=== PATIENT | male | born 1980 | race Caucasian/White ===

== ENCOUNTER 2016-04-29 16:13 | Emergency (ER) | payer BC ==
[2016-04-29 16:37] VITALS: BP 143/93
--- NOTE | 2016-04-29 18:24 | EDM.PDOC ---
ED HPI Trauma - General Chief Complaint: Upper Extremity Injury/Pain Stated Complaint: RT HAND INJURY Time Seen by Provider: 04/29/16 16:45 Source: Reports: Patient History Limitations: Reports: No limitations - History of Present Illness INITIAL COMMENTS - FREE TEXT/NARRATIVE: Evans is a 36yo male presents ambulatory to ED with complaints of right hand pain and swelling after an incident with his horse in the park yesterday afternoon. He was trying to get saddle on his horse and horse spooked, he got thrown into park. He is not exactly sure what happened but did have pain to the dorsal surface of his hand after this. He had no other injuries, no LOC. Last night he noted swelling to the dorsal surface of his hand with worsening pain. He applied ice. This morning hand is more swollen and painful. He did take motrin with good relief. Denies numbness/tingling to the fingers. No laceration to the hand. He is otherwise healthy. He is rt hand dominant. He is a rancher/witt. Occurred When: yesterday Occurred Where: home Method of Injury: direct blow Severity: moderate Pain/Injury Location: Reports: upper extremity, right Consciousness: Reports: no loss of consciousness Associated Symptoms: Reports: no other symptoms. Denies: chest pain, confusion , dizziness, headache, lightheadedness, muscle spasms, nausea/vomiting, neck pain, seizures, shortness of breath Allergies/ADRs: Allergies No Known Allergies Allergy (Verified 04/29/16 16:33) Home Medications: Ambulatory Orders Ranitidine HCl [Zantac 75] 1 tab PO DAILY PRN 04/29/16 [Confirmed 04/29/16] Past Medical History Gastrointestinal History: Reports: GERD - Past Surgical History Musculoskeletal Surgical History: Reports: Other (see below) Other Musculoskeletal Surgeries/Procedures:: Right wrist Social & Family History - Tobacco Use Smoking Status *Q: Never Smoker Second Hand Smoke Exposure: No - Caffeine Use Caffeine Use: Reports: Tea - Recreational Drug Use Recreational Drug Use: No Review of Systems - Review of Systems Review Of Systems: See Below Constitutional: Reports: no symptoms Eyes: Reports: no symptoms Ears: Reports: no symptoms Nose: Reports: no symptoms Mouth/Throat: Reports: no symptoms Respiratory: Reports: No Symptoms Cardiovascular: Reports: no symptoms GI/Abdominal: Reports: No symptoms Genitourinary: Reports: no symptoms Musculoskeletal: Reports: hand pain (rt hand; see HPI) Skin: Reports: no symptoms Neurological: Reports: No Symptoms Trauma Exam - Physical Exam Exam: See Below Exam Limited By: No limitations General Appearance: Reports: alert, WD/WN, no apparent distress Head: Reports: atraumatic, normocephalic Eyes: bilateral eye: EOMI, PERRL Ears: Reports: normal external exam, hearing grossly normal Nose: Reports: normal inspection Throat/Mouth: Reports: Normal inspection, Normal lips Respiratory Exam: Reports: no respiratory distress Cardiovascular: Reports: normal peripheral pulses (radial pulses 2+ and = bilat) Extremities: Reports: other (dorsum of right hand is with swelling over 3rd and 4th distal metacarpals; pain over this area with palpation. He has full ROM to fingers and wrist. CMS is + to all fingers. ) Neurologic: Reports: humanities coordinator II-XII nml as tested Skin: Reports: Normal color, Warm/dry Course - Vital Signs Last Recorded V/S: Last Vital Signs Temp 98.3 F 04/29/16 16:34 Pulse 75 04/29/16 16:34 Resp 18 04/29/16 16:34 BP 143/93 H 04/29/16 16:34 Pulse Ox 99 04/29/16 16:34 - Orders/Labs/Meds Orders: Active Orders 24 hr Category Date Time Status Hand 2V Rt [CR] Stat Exams 04/29/16 16:44 Taken - Radiology Interpretation Free Text/Narrative:: Xray of right hand shows 3rd distal metacarpal fracture at the base; nondisplaced. Independently reviewed by myself. Will await [facility] final report. Departure - Departure Time of Disposition: 18:10 Disposition: Home, Self-Care 01 Condition: good Clinical Impression: Fracture of metacarpal bone Qualifiers: Encounter type: initial encounter Metacarpal bone: third Fracture type: closed Metacarpal location: base Fracture alignment: nondisplaced Laterality: right Qualified Code(s): S62.342A - Nondisplaced fracture of base of third metacarpal bone, right hand, initial encounter for closed fracture Instructions: Metacarpal Fracture, [id number] Referrals: Haily lAdana PA-C [Primary Care Provider] - Forms: ED Department Discharge Additional Instructions: You have a fracture at the base of your hand; base of the long finger where it connects to your wrist; at this time it is not displaced and in good alignment; if it stays this way, most likely will not need surgical intervention. Please follow up with Dr. Valverde with [facility] sometime next week for further evaluation: call [phone] to schedule appointment Elevate arm as much as possible Ibuprofen 3-4 tabs 3 times daily if needed for pain Ice over splint as needed 3-4 times daily Sling as needed for comfort Keep splint clean and dry, do not remove until you see Dr. Valverde next week. Call or return to ER if problems, questions or concerns.
--- NOTE | 2016-05-01 06:53 | CR ---
Right hand: Two views of the right hand were obtained. Comparison: No previous study. Soft tissue swelling seen. Joint spaces are preserved. Well-corticated bony density noted off the ulnar styloid process compatible with old injury. Several small bony densities also noted off the dorsal wrist compatible with old injury. No acute fracture or other bony abnormality is appreciated. Impression: 1. Soft tissue swelling. Other incidental findings. No acute bony abnormality is identified. Diagnostic code #2
== END 2016-04-29 18:30 | disposition home or self-care (01) ==
LOC: JD.ED 16:13
DX: S62.342A Nondisplaced fracture of base of third metacarpal bone, right hand, initial encounter for closed fracture (principal); K21.9 Gastro-esophageal reflux disease without esophagitis; Z79.899 Other long term (current) drug therapy; Z98.890 Other specified postprocedural states; V80.010A Animal-rider injured by fall from or being thrown from horse in noncollision accident, initial encounter; Y92.009 Unspecified place in unspecified non-institutional (private) residence as the place of occurrence of the external cause
CPT/HCPCS: 29125; 73120-26-RT; 73120-RT; 99283-25; 99284-25

== ENCOUNTER → 2019-12-23 | Day surgery (SDC) | payer MEDICAID ==
[~2019-12-23] MED LIST: Lactated Ringers 1,000 ML IV SCH; Lidocaine 1%/Sod Bicarbonate in NS 8.4% 1 ML Syringe IDERM PRN; Midazolam 1 MG/ML 2 ML SDV ONE; Propofol 200 MG/20 ML SDV ONE; Simethicone 80 MG Tab.Chew PO SCH; Sodium Chloride 0.9% 10 ML Syringe FLUSH PRN; fentaNYL 100 MCG/2 ML SDV ONE
--- NOTE | 2019-12-23 09:44 | PCM.PREANE ---
Preanesthetic Assessment - Procedure Proposed Procedure: screening colonoscopy - Anesthesia/Transfusion/Family Hx Anesthesia History: Prior Anesthesia Without Reaction Family History of Anesthesia Reaction: No Transfusion History: No Prior Transfusion(s) - Review of Systems General: No Symptoms Pulmonary: No Symptoms Cardiovascular: No Symptoms Gastrointestinal: Abdominal Pain (hunger pains) Neurological: No Symptoms - Physical Assessment NPO Status Date: 12/22/19 NPO Status Time: 00:00 Height: 1.83 m Weight: 83.915 kg ASA Class: 2 Mental Status: Alert & Oriented x3 Airway Class: Mallampati = 1 Dentition: Reports: Normal Dentition Thyro-Mental Finger Breadths: 3 Mouth Opening Finger Breadths: 3 ROM/Head Extension: Full Lungs: Clear to Auscultation, Normal Respiratory Effort Cardiovascular: Regular Rate, Regular Rhythm - Allergies Allergies/Adverse Reactions: Allergies Allergy/AdvReac Type Severity Reaction Status Date / Time No Known Allergies Allergy Verified 04/29/16 16:33 - Blood Blood Available: No Product(s) Available: None - Anesthesia Plan Pre-Op Medication Ordered: None - Acknowledgements Anesthesia Type Planned: MAC Pt an Appropriate Candidate for the Planned Anesthesia: Yes Alternatives and Risks of Anesthesia Discussed w Pt/Guardian: Yes Pt/Guardian Understands and Agrees with Anesthesia Plan: Yes PreAnesthesia Questionnaire Gastrointestinal History: Reports: GERD - Past Surgical History Musculoskeletal Surgical History: Reports: Other (See Below) - SUBSTANCE USE Tobacco Use Status *Q: Never Tobacco User Tobacco Use Within Last Twelve Months: No Second Hand Smoke Exposure: No Days Per Week of Alcohol Use: 0 Number of Drinks Per Day: 0 Total Drinks Per Week: 0 Recreational Drug Use History: No - HOME MEDS Home Medications: Home Meds raNITIdine HCL [Zantac 75] 1 tab PO DAILY PRN 04/29/16 [History] - CURRENT (IN HOUSE) MEDS Current Meds: Current Medications Lactated Ringer's (Ringers, Lactated) 1,000 mls @ 125 mls/hr IV ASDIRECTED ANOOP Stop: 12/23/19 23:00 Lidocaine/Sodium Bicarbonate (Buffered Lidocaine 1% In Ns 8.4%) 0.25 ml IDERM ONETIME PRN PRN Reason: Prior to IV Start Stop: 12/23/19 18:00 Sodium Chloride (Saline Flush) 10 ml FLUSH ASDIRECTED PRN PRN Reason: Keep Vein Open Stop: 12/23/19 18:00
--- NOTE | 2019-12-23 11:11 | PCM.PRNOTE ---
- Free Text/Narrative Note: Date: 12/23/2019 Procedure: screening colonoscopy History: sessile serrated adenoma on previous scope Surgeon: Abel Elliott MD Findings: excellent prep. terminal ileum intubated. A few very small polyps identified in the span of the sigmoid and rectum. No diverticular disease or hemorrhoids noted. Detailed Report: The patient was taken to the endoscopy suite and placed in left lateral decubitus position. Time out was performed and monitored anesthesia care initiated. The anus appeared normal. Digital rectal exam was unremarkable. The colonoscope was inserted and advanced to the cecum. The prep was excellent. The appendiceal orifice was seen. The terminal ileum was intubated and small bowel mucosa appeared normal. The scope was then slowly withdrawn. No abnormalities were noted until the mid-sigmoid, where a very small sessile hyperplastic- appearing polyp was noted. This was removed with cold forceps. Two additional similar lesions were noted near the rectosigmoid junction and removed in identical fashion. A pedunculated polyp was noted in the proximal rectum, measuring only a few mm, and this was removed with cold snare. Retroflexion within the rectum revealed no abnormality. Air was suctioned prior to withdrawal of the scope. The patient tolerated the procedure well.
--- NOTE | 2019-12-23 11:12 | PCM48HPAN ---
Post Anesthesia Note - EVALUATION WITHIN 48HRS OF ANESTHETIC Vital Signs in Normal Range: Yes Patient Participated in Evaluation: Yes Respiratory Function Stable: Yes Airway Patent: Yes Cardiovascular Function Stable: Yes Hydration Status Stable: Yes Pain Control Satisfactory: Yes Nausea and Vomiting Control Satisfactory: Yes Mental Status Recovered: Yes Vital Signs: Last Vital Signs Temp 36.6 C 12/23/19 09:15 Pulse 70 12/23/19 09:15 Resp 16 12/23/19 09:15 BP 129/83 12/23/19 09:15 Pulse Ox 99 12/23/19 09:15
[2019-12-23 12:18] VITALS: BP 127/83; PULSE 81
== END | disposition home or self-care (01) ==
LOC: JD.SDS 09:15
PROVIDERS: ATTEND Surgery
DX: D12.8 Benign neoplasm of rectum (principal); F41.9 Anxiety disorder, unspecified; E78.00 Pure hypercholesterolemia, unspecified; K21.9 Gastro-esophageal reflux disease without esophagitis; Z79.899 Other long term (current) drug therapy; Z87.891 Personal history of nicotine dependence
CPT/HCPCS: 45380; 45385; A9270; J2250; J2704; J3010; J7120; 00812

== ENCOUNTER 2021-04-04 10:53 | Day surgery (SDC) | payer MEDICAID ==
[~2021-04-04 10:53] MED LIST changes: -Midazolam 1 MG/ML 2 ML SDV ONE; -Propofol 200 MG/20 ML SDV ONE; -Simethicone 80 MG Tab.Chew PO SCH; +Sodium Chloride 0.9% 10 ML Syringe FLUSH SCH; -fentaNYL 100 MCG/2 ML SDV ONE
[2021-04-04] MEDS ORDERED: Famotidine 20 MG/2 ML SDV IVPUSH ONE (11:15)
[2021-04-04] MEDS ORDERED: Bupivacaine 0.25% 10 ML SDV ONE (11:40)
[2021-04-04] MEDS ORDERED: Ketorolac 30 MG/ML SDV ONE (11:43)
[2021-04-04] MEDS ORDERED: Ondansetron 4 MG/2 ML SDV ONE (11:43)
[2021-04-04] MEDS ORDERED: fentaNYL 250 MCG/5 ML SDV ONE (11:43)
[2021-04-04] MEDS ORDERED: Dexamethasone 4 MG/ML 5 ML MDV ONE (11:43)
[2021-04-04] MEDS ORDERED: Propofol 200 MG/20 ML SDV ONE (11:43)
[2021-04-04] MEDS ORDERED: Midazolam 1 MG/ML 2 ML SDV ONE (11:43)
[2021-04-04] MEDS ORDERED: Lactated Ringers 1,000 ML ONE (11:43)
[2021-04-04] MEDS ORDERED: Citric Acid/Sodium Citrate Solution 30 ML Cup PO ONE (12:00)
[2021-04-04] MEDS ORDERED: EPINEPHrine 1 MG/ML 30 ML MDV IRR SCH (13:00)
[2021-04-04] MEDS ORDERED: ceFAZolin 1 GM Vial ONE (13:02)
[2021-04-04] MEDS ORDERED: Ondansetron 4 MG/2 ML SDV IVPUSH PRN (13:17)
[2021-04-04] MEDS ORDERED: HYDROmorphone 0.5 MG/0.5 ML Syringe IVPUSH PRN (13:17)
[2021-04-04] MEDS ORDERED: fentaNYL 100 MCG/2 ML SDV IVPUSH PRN (13:17)
[2021-04-04] MEDS ORDERED: Succinylcholine/Sod PF 100 MG/5 ML SYRINGE IV ONE (13:32)
[2021-04-04] MEDS ORDERED: Albuterol 0.083% 2.5 MG/3 ML Neb Soln NEB ONE (14:15)
[2021-04-04 14:46] VITALS: BP 125/77; PULSE 67
== END 2021-04-04 15:50 | disposition home or self-care (01) ==
LOC: JD.SDS 10:53
PROVIDERS: ATTEND Orthopaedic Surgery
DX: S83.241A Other tear of medial meniscus, current injury, right knee, initial encounter (principal); M94.261 Chondromalacia, right knee; K21.9 Gastro-esophageal reflux disease without esophagitis; F41.9 Anxiety disorder, unspecified; F17.220 Nicotine dependence, chewing tobacco, uncomplicated; Z79.899 Other long term (current) drug therapy
CPT/HCPCS: 29881; A9270; J0171; J0330; J0690; J1100; J1885; J2250; J2405; J2704; J3010; J3490; J7120; 01400

== ENCOUNTER 2021-07-31 00:01 | Emergency (ER) | payer MEDICAID ==
[2021-07-31 00:13] VITALS: BP 133/101; PULSE 63
== END 2021-07-31 00:57 | disposition home or self-care (01) ==
LOC: JD.ED 00:01
DX: K64.5 Perianal venous thrombosis (principal); Z28.310 Unvaccinated for COVID-19
CPT/HCPCS: 99282; 99283

== ENCOUNTER → 2022-09-21 | Day surgery (SDC) | payer MEDICAID ==
[~2022-09-21] MED LIST changes: +Lidocaine 1% 2 ML ONE; -Lidocaine 1%/Sod Bicarbonate in NS 8.4% 1 ML Syringe IDERM PRN; +Midazolam 1 MG/ML 2 ML SDV ONE; +Ondansetron 4 MG/2 ML SDV IVPUSH PRN; +Propofol 200 MG/20 ML SDV ONE; +fentaNYL 100 MCG/2 ML SDV IVPUSH PRN; +fentaNYL 100 MCG/2 ML SDV ONE
[2022-09-21 10:46] VITALS: BP 122/67; PULSE 58
== END | disposition home or self-care (01) ==
LOC: JD.SDS 08:06
PROVIDERS: ATTEND Surgery
DX: K21.9 Gastro-esophageal reflux disease without esophagitis (principal); K29.50 Unspecified chronic gastritis without bleeding; K31.7 Polyp of stomach and duodenum; K44.9 Diaphragmatic hernia without obstruction or gangrene; F41.9 Anxiety disorder, unspecified; I10 Essential (primary) hypertension; J45.909 Unspecified asthma, uncomplicated; Z79.899 Other long term (current) drug therapy; Z87.891 Personal history of nicotine dependence
CPT/HCPCS: 43239; J2250; J2704; J3010; J7120; 00731; J3490

== ENCOUNTER 2023-10-11 10:53 | Day surgery (SDC) | payer BC ==
[~2023-10-11 10:53] MED LIST changes: -Lactated Ringers 1,000 ML IV SCH; -Lidocaine 1% 2 ML ONE; -Midazolam 1 MG/ML 2 ML SDV ONE; -Ondansetron 4 MG/2 ML SDV IVPUSH PRN; -Propofol 200 MG/20 ML SDV ONE; -fentaNYL 100 MCG/2 ML SDV IVPUSH PRN; -fentaNYL 100 MCG/2 ML SDV ONE
[2023-10-11] MEDS ORDERED: Rocuronium 50 MG/5 ML Vial ONE (11:05)
[2023-10-11] MEDS ORDERED: Propofol 200 MG/20 ML SDV ONE (11:05)
[2023-10-11] MEDS ORDERED: Ondansetron 4 MG/2 ML SDV ONE (11:05)
[2023-10-11] MEDS ORDERED: Midazolam 1 MG/ML 2 ML SDV ONE (11:05)
[2023-10-11] MEDS ORDERED: fentaNYL 250 MCG/5 ML SDV ONE (11:06)
[2023-10-11] MEDS: Lactated Ringers 1,000 ML IV SCH (11:20)
[2023-10-11] MEDS ORDERED: Ondansetron 4 MG/2 ML SDV IVPUSH PRN (12:07)
[2023-10-11] MEDS ORDERED: Lidocaine 1% 4 ML ONE (12:07)
[2023-10-11] MEDS ORDERED: Lidocaine 1% PF 2 ML SDV ONE ×2 (12:07)
[2023-10-11] MEDS ORDERED: HYDROmorphone 0.5 MG/0.5 ML Syringe IVPUSH PRN (12:07)
[2023-10-11] MEDS ORDERED: Lactated Ringers 1,000 ML ONE (12:07)
[2023-10-11] MEDS ORDERED: dexmedeTOMIDine HCl 200 MCG/2 ML SDV ONE (12:08)
[2023-10-11] MEDS ORDERED: ePHEDrine 50 MG/ML SDV ONE (12:18)
[2023-10-11] MEDS: Famotidine 20 MG/2 ML SDV IVPUSH ONE (12:25)
[2023-10-11] MEDS ORDERED: Neostigmine Methylsulfate 10 MG/10 ML MDV ONE (12:48)
[2023-10-11] MEDS ORDERED: ceFAZolin 2 GM Vial ONE (13:00)
[2023-10-11] MEDS ORDERED: Dexamethasone 4 MG/ML 5 ML MDV ONE (13:00)
[2023-10-11] MEDS ORDERED: Ketorolac 30 MG/ML SDV ONE (14:00)
[2023-10-11] MEDS: fentaNYL 100 MCG/2 ML SDV IVPUSH PRN (14:44)
[2023-10-11] MEDS: Bupivacaine 0.5% 30 ML SDV ONE (15:09)
[2023-10-11] MEDS: EPINEPHrine 1 MG/ML SDV ONE (15:10)
[2023-10-11] MEDS: oxyCODONE 5 MG Tab PO PRN (15:40)
[2023-10-11 16:43] VITALS: BP 118/74; PULSE 68
== END 2023-10-11 16:15 | disposition home or self-care (01) ==
LOC: JD.SDS 10:53
PROVIDERS: ATTEND Surgery
DX: K80.10 Calculus of gallbladder with chronic cholecystitis without obstruction (principal); F41.9 Anxiety disorder, unspecified; K21.9 Gastro-esophageal reflux disease without esophagitis; J45.909 Unspecified asthma, uncomplicated; I10 Essential (primary) hypertension; Z87.891 Personal history of nicotine dependence; Z79.899 Other long term (current) drug therapy
CPT/HCPCS: 00790; 88304; A9270-GY; J0171; J0665; J0690; J1100; J1885; J2250; J2405; J2704; J2710; J3010; J3490; J7120